=== PATIENT | male | born 1940 | race Caucasian/White ===

== ENCOUNTER 2023-02-23 09:47 | Outpatient (CLI) | payer MEDICARE, BC | END 2023-02-23 09:48 | disposition home or self-care (01) | LOC: CSHCT 09:47 | PROVIDERS: ATTEND Physician Assistant Medical | DX: R10.12 Left upper quadrant pain (principal); R91.1 Solitary pulmonary nodule; K59.00 Constipation, unspecified | CPT/HCPCS: 74177; 82565 ==